=== PATIENT | female | born 1990 | race Caucasian/White ===

== ENCOUNTER 2017-05-30 19:12 | Emergency (ER) | payer SELFPAY ==
[2017-05-30 20:48] LABS: #Basophils 0.1 thou/uL (0.0-0.2); #Eosinphils 0.3 thou/uL (0.0-0.7); #Lymphocytes 3.9 thou/uL (1.20-3.40); #Monocytes 0.8 thou/uL (0.11-0.59); #Neutrophils 5.6 thou/uL (1.40-6.50); %Basophils 1.1 % (0.0-1.0); %Eosinophils 2.9 % (0.0-10.0); %Lymphocytes 36.5 % (21.0-51.0); %Monocytes 7.1 % (0.0-10.0); %Neutrophils 52.3 % (42.0-75.0); Mean Corpuscular HGB CONC 32.3 g/dL (32.0-36.0); Mean Corpuscular Hemoglobin 27.5 pg (27.0-31.0); Mean Corpuscular Volume 85.1 fl (81.0-99.0); Platelet Count 398 thou/uL (130-400); RBC Distribution Width 12.9 % (11.5-14.5); Red Blood Cell (RBC) Count 4.38 mill/uL (4.20-5.40); White Blood Cell (WBC) Count 10.6 thou/uL (4.8-10.8)
[2017-05-30 21:00] LABS: BHCG - Serum POSITIVE (NEGATIVE); Pregs Control Bar Appear? YES (CONTROL BAR)
[2017-05-30 21:01] LABS: ALT (SGPT) 18 U/L (8-55); AST (SGOT) 12 U/L (5-34); Alkaline Phosphatase 41 U/L (40-150); Anion Gap 13 mmol/L (10-20); BUN (Urea Nitrogen) 11 mg/dL (7.0-18.7); Bilirubin, Total Less than 0.3 mg/dL (0.2-1.2); Calc. Creatinine Clearance 0 mL/min (70-130); Calcium 9.7 mg/dL (7.8-10.44); Carbon Dioxide 25 mmol/L (22-29); Chloride 104 mmol/L (98-107); Estimated GFR-MDRD 89; Globulin 3.3 g/dL (2.4-3.5); Glucose 117 mg/dL (70-105); Potassium 3.8 mmol/L (3.5-5.1); Pregs Control Background? CLEAR/WHITE (CLR/WHITE); Protein, Total 7.3 g/dL (6.0-8.3); Sodium 138 mmol/L (136-145)
[2017-05-30 21:09] LABS: Bacteria/HPF 4+ HPF (None Seen); Bilirubin Negative (Negative); Blood, Urine Large (Negative); Clarity Turbid (Clear); Glucose, Urine (Dipstick) Negative (Negative); Leukocyte Negative (Negative); Nitrite Negative (Negative); Protein, Urine (Dipstick) 30 mg/dL (Neg-Trace); RBC/HPF GREATER THAN 50-TNTC HPF (0-3); Specific Gravity, Urine 1.029 (1.005-1.030); Urobilinogen 0.2 mg/dL (0.2-1.0); pH, Urine 5.5 (5.0-9.0)
[2017-05-30] MEDS ORDERED: Nitrofurantoin Monohyd/M-Cryst 100 MG CAP ONE (22:27)
== END 2017-05-30 22:28 | disposition home or self-care (01) ==
LOC: MADERS 19:12
DX: O20.0 Threatened abortion (principal); O99.331 Smoking (tobacco) complicating pregnancy, first trimester; F17.210 Nicotine dependence, cigarettes, uncomplicated; Z3A.01 Less than 8 weeks gestation of pregnancy
CPT/HCPCS: 36415; 80053; 81001; 84703; 85025; 86900; 86901; 87086; 99284

== ENCOUNTER 2017-05-31 10:06 | Emergency (ER) | payer SELFPAY ==
--- NOTE | 2017-05-31 12:25 | ULT ---
PELVIC SONOGRAM TRANSABDOMIANL AND TRANSVAGINAL IMAGING WITH DUPLEX EVALUATION HISTORY: Pelvic bleeding. Positive test. FINDINGS: The urinary bladder is unremarkable. The uterus has a heterogeneous echotexture and measures up to 11 cm in length. The endometrium is 1.4 cm in thickness. No gestational sac is apparent within the endometrial cavity. The right ovary is 2.4 cm in length and the left is 2.6 cm. Each has a normal sonographic appearance and demonstrates good color and spectral Doppler flow. IMPRESSION: Thickened endometrium. No evidence of intrauterine gestation. Continued clinical and sonographic f ollowup regarding the possibility of early is required. POS: PEGGY
== END 2017-05-31 12:40 | disposition home or self-care (01) ==
LOC: MADERS 10:06
DX: O20.9 Hemorrhage in early pregnancy, unspecified (principal); Z3A.01 Less than 8 weeks gestation of pregnancy; F17.210 Nicotine dependence, cigarettes, uncomplicated; Z79.899 Other long term (current) drug therapy
CPT/HCPCS: 36415; 76815; 84702

== ENCOUNTER 2024-10-31 10:07 | Emergency (ER) | payer MEDICAID, SELFPAY ==
[2024-10-31] MEDS ORDERED: Ibuprofen 800 MG TAB ONE (10:45)
== END 2024-10-31 10:45 | disposition home or self-care (01) ==
LOC: MADERS 10:07
DX: J06.9 Acute upper respiratory infection, unspecified (principal); F17.210 Nicotine dependence, cigarettes, uncomplicated
CPT/HCPCS: 99283